=== PATIENT | female | born 1995 | race Caucasian/White ===

== ENCOUNTER 2017-01-25 13:30 | Emergency (ER) | payer BC, OTHER ==
[2017-01-25 14:15] VITALS: BP 145/78
--- NOTE | 2017-01-25 15:17 | ERNOTE ---
Time Seen by Provider: 01/25/17 15:03 Stated Complaint: NOT BREATHING RIGHT Presenting Symptoms:: other - occasional yellow sputum and chest wall pain Immunizations: IMMUNIZATION HX Immunizations Up to Date Yes History of Influenza Vaccine Yes Hx Pneumococcal Vaccination No Allergies/Adverse Reactions: Allergies milk Adverse Reaction (Verified 01/25/17 14:16) Nausea Home Medications: HOME MEDICATIONS Albuterol Sulfate [Proair Hfa] 2 puff IH PRN PRN 02/06/16 [Last Taken Unknown] Ranitidine HCl [Zantac 75] 150 mg PO DAILY PRN 02/06/16 [Last Taken Unknown] Azithromycin [Zithromax] 250 mg PO DAILY #6 tablet 01/25/17 [Last Taken Unknown] Naproxen [Naprosyn] 500 mg PO BID #60 tablet 01/25/17 [Last Taken Unknown] - History of Present Ilness Timing: intermittent, other - ongoing for the past week Severity: mild Associated Symptoms: Reports: chest pain/soreness Review of Systems - Review of Systems Constitutional: Present: See HPI EYE: Present: no symptoms reported ENT: Present: no symptoms reported Respiratory: Present: no symptoms reported Cardiology: Present: no symptoms reported Gastrointestinal/Abdominal: Present: no symptoms reported Genitourinary: Present: no symptoms reported Musculoskeletal: Present: no symptoms reported Skin: Present: no symptoms reported Neurological: Present: no symptoms reported Endocrine: Present: no symptoms reported Hematologic/Lymphatic: Present: no symptoms reported Psych: Present: no symptoms reported - Patient's Past Medical History Patient History - Medical: GERD Patient History - Cardiac/Respiratory: No pertinent hx Patient History - Cancer: No Hx of Cancer Patient History - Surgical Procedures: Ear Tubes Patient History - Other: None LMP (females 10-50): 3 weeks - Social History Living Situations: home Abuse History: No History of abuse Psych History: No pertinent hx Smoking Status: Never smoker Alcohol Use: rarely Drug Use: none - Immunizations Immunizations Up to Date: Yes Hx Pneumococcal Vaccination: No History of Influenza Vaccine: Yes Physical Exam - Physical Exam General Appearance: Present: wd/wn, alert, no apparent distress Eye Exam: Normal inspection: bilateral, PERRL: bilateral Ears, Nose, Throat: Present: normal ENT inspection, H, normal pharynx Neck: Present: normal inspection, nontender Respiratory: Present: no respiratory distress, no accessory muscle use, chest nontender, lungs clear, other - fine coarse breath sounds, chest wall tenderness Cardiovascular/Chest: Present: regular rate, rhythm, no murmur, normal peripheral pulses Gastrointestinal/Abdominal: Present: normal bowel sounds, nontender, nondistended, soft, no organomegaly Rectal Exam: Present: deferred Back Exam: Present: normal inspection, normal range of motion Extremity Exam: Present: normal inspection, non-tender, no edema, normal range of motion Neurological Exam: Present: alert, oriented, normal mood/affect Skin Exam: Present: normal color, warm/dry Lymphatic Exam: Present: no adenopathy ED Progress - Vital Signs Patient's Vital Signs:: I have reviewed the patient's vital signs. Vital Signs: Vital Signs 01/25/17 14:11 Temperature 37.1 C Pulse Rate 120 H Respiratory 16 Rate Blood Pressure 145/78 O2 Sat by Pulse 100 Oximetry - Progress/Reassessment Chief Complaint: Upper Respiratory Symptoms Progress:: Unchanged - Transfer of Care Expected Disposition: Discharge Departure - Departure Clinical Impression: Chest wall tenderness URI (upper respiratory infection) Qualifiers: URI type: unspecified URI Qualified Code(s): J06.9 - Acute upper respiratory infection, unspecified Instructions: Upper Respiratory Infection, Adult, [id number], Chest Wall Pain , [id number] Prescriptions: Azithromycin [Zithromax] 250 mg PO DAILY #6 tablet Naproxen [Naprosyn] 500 mg PO BID #60 tablet
--- OUTSIDE RECORDS SUMMARY | 2017-01-25 15:27 | XMS REPORT | Continuity of Care Document ---
:1995 Author Organization [facility] Address Unavailable [place] [id number] Care Team Providers Name Role Phone Francisco Brown Primary Care Provider [phone] Source Comments This disclosure is being made pursuant to the [employer] program and maynot contain all information available regarding this patient.[facility] Active Allergies and Adverse Reactions No Known Allergies Current Medications Be aware that medications may not be up to date as of this document. Alwaysverify current medications with the patient. Prescription Sig. Disp. Refills Start Date End Date Status citalopram (CELEXA) 20 MG Take 1 tablet by 1 01/13/2016 Active tablet mouth daily. dicyclomine (BENTYL) 10 MG Take 10 mg by 0 03/09/2016 Active capsule mouth 4 (four) times daily. LORazepam (ATIVAN) 0.5 MG Take 1 tablet by 1 01/13/2016 Active tablet mouth as needed. pantoprazole (PROTONIX) 40 Take 40 mg by 0 03/09/2016 Active MG tablet mouth daily. ibuprofen (ADVIL,MOTRIN) 0 03/17/2016 Active 800 MG tablet chlorhexidine (PERIDEX) 0 03/17/2016 Active 0.12 % solution amoxicillin (AMOXIL) 500 0 03/17/2016 Active MG capsule Active Problems No known active problems Most Recent Encounters Date Type Specialty Providers Description 11/04/2016 Data Import Social History Tobacco Use Types Packs/Day Years Used Date Never Smoker Smokeless Tobacco: Never Used Alcohol Use Drinks/Week oz/Week Comments No 0 Standard drinks or equivalent 0.0 Last Filed Vital Signs Vital Sign Reading Time Taken Blood Pressure 124/76 03/16/2016 9:59 AM CDT Pulse 120 03/16/2016 9:59 AM CDT Temperature 36.8 C (98.3 F) 03/16/2016 9:59 AM CDT Respiratory Rate 12 03/16/2016 9:59 AM CDT Height 1.562 m (5' 1.5") 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
--- OUTSIDE RECORDS SUMMARY | 2017-01-25 15:27 | XMS REPORT | Continuity of Care Document ---
:1995 Author Organization [facility] ([facility]) Address [address] [place] [address] Phone [phone] Care Team Providers Name Role Phone Francisco Brown Primary Care Provider [phone] Source Comments This disclosure is being made pursuant to the Care Everywhere program, applicable federal and state laws, and may not contain all informaitonavailable regarding this patient.[facility] ([facility]) Active Allergies and Adverse Reactions No Known Allergies Current Medications Prescription Sig. Disp. Refills Start Date End Date Status CETIRIZINE HCL take by mouth. Active (CETIRIZINE PO) MONTELUKAST SODIUM take by mouth. Active (SINGULAIR PO) buPROPion (WELLBUTRIN Take 1 Tab by mouth 30 Tab 2 09/10/2010 Active XL) 300 mg extended Every morning. - release tablet cancel lithium script Indications: Depression associated with Manic Depressive Disorder escitalopram (LEXAPRO) Take 1 Tab by mouth 30 Tab 0 09/10/2010 Active 10 mg tablet daily. Indications: Major Depressive Disorder Active Problems Problem Noted Date Encounter for long-term (current) use of other medications 02/02/2010 Bipolar II disorder 01/19/2010 Attention-deficit/hyperactivity disorder 01/19/2010 Social History Tobacco Use Types Packs/Day Years Used Date Never Assessed Last Filed Vital Signs Vital Sign Reading Time Taken Blood Pressure 137/71 09/10/2010 2:33 PM CDT Pulse 102 09/10/2010 2:33 PM CDT Temperature - - Respiratory Rate - - Height 1.539 m (5' 0.6") 09/10/2010 2:33 PM CDT Weight 59.3 kg (130 lb 11.7 oz) 09/10/2010 2:33 PM CDT Body Mass Index 25.04 09/10/2010 2:33 PM CDT Oxygen Saturation - - Plan of Care Health Maintenance Due Date Last Done Comments Hepatitis B Vaccine (1 of 3 - Primary Series) 1996 HPV Vaccine (1 of 3 - Female/Unknown 3 Dose Series) 2007 Tdap Vaccine 2007 Meningococcal Vaccine (1 of 1) 2012 Lipid Disorder Screening 2014 MMR Vaccine 2014 Td Vaccine 2014 Varicella Vaccine (1 of 2 - Adult - No Evidence of 2014 Immunity) Influenza Vaccine: Seasonal (#1) 06/21/2016 Results from Last 3 Months Not on file
== END 2017-01-25 15:23 | disposition home or self-care (01) ==
LOC: ER 13:30
DX: R07.89 Other chest pain (principal); J06.9 Acute upper respiratory infection, unspecified

== ENCOUNTER 2019-04-02 16:13 | Inpatient (IN) ==
[2019-04-02] MEDS ORDERED: DEXTROSE 5%-LACTATED RINGERS 1,000 ML IV PRN (16:23)
[2019-04-02] MEDS ORDERED: RINGER'S SOLUTION,LACTATED 1,000 ML IV ONE (16:23)
[2019-04-02] MEDS ORDERED: ONDANSETRON 4 MG TAB.RAPDIS PO PRN (16:23)
[2019-04-02] MEDS ORDERED: OXYTOCIN/DEXTROSE 5%-WATER 30 UNITS/500 ML BAG IV ONE (16:23)
[2019-04-02 16:45] LABS: Random Urine Total Protein 13.7 mg/dL (0-12)
[2019-04-02 16:49] LABS: Hematocrit 33.3 % (37.0-47.0); Hemoglobin 11.7 gm/dL (12.5-16.0); Mean Cell Volume 93.8 fl (78-100); Mean Corpuscular Hgb Conc 35.1 g/dl (32-36); Mean Platelet Volume 9.8 fl (8-12.5); Neutrophil # 5.9 K/mm3 (1.3-6.0); Neutrophil % 77.4 % (42-75.0); Platelet Count 201 K/mm3 (150-450); Red Blood Count 3.55 M/mm3 (4.2-5.4); Red Cell Distribution Width 12.3 % (11.5-14.0); White Blood Count 7.7 K/mm3 (4.0-10.5)
[2019-04-02 16:49] LABS: Cocaine Ur Negative (NEGATIVE); Urine Barbiturate Negative (NEGATIVE); Urine Benzodiazepines Negative (NEGATIVE); Urine Opiates Negative (NEGATIVE); Urine PCP Negative (NEGATIVE); Urine THC Negative (NEGATIVE)
--- NOTE | 2019-04-02 16:56 | HP ---
Chief Complaint - Chief Complaint Date of Service: 04/02/19 Time of Service: 16:43 Chief Complaint: elevated BPs History of Present Illness: 24 yo at 38 6/7 weeks presents to L&D from office with elevated blood pressures (150/76, 151/97). She admits to edema and frequent mild HAs that resolve without medication over the past couple days (has been getting these even before ). Denies epigastric pain or visual changes. This complicated by anemia, asthma, GHTN, and platypelloid pelvis. 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 mt Surgical History: Surgical History (Updated 12/13/18 @ 14:55 by Akash Chavez DO) H/O adenoidectomy Onset Date: 1996 Tympanic tube insertion Onset Date: 1996 Family History: Family History (Updated 06/01/18 @ 07:09 by Soledad Geller) Aunt Diabetes Hypothyroidism Father Hypertension Social History: Preferred Language Mauritanian Smoking Status Never smoker Abuse History No History of abuse Psych History No pertinent hx (Last Reviewed 04/02/19 @ 15:19 by Xiomy Tatum RN) No Social History Section defined Review Of Systems (GEN) - Review of Systems Generalized/Overall Review: Present: No Symptoms Reported EENTM: Present: No Symptoms Reported Respiratory: Present: No Symptoms Reported Cardiac: Present: No Symptoms Reported Abdominal: Present: No Symptoms Reported Genitourinary: Present: No Symptoms Reported Musculoskeletal: Present: No Symptoms Reported Neurological: Present: No Symptoms Reported Skin: Present: No Symptoms Reported Endocrine: Present: No Symptoms Reported Immunizations: IMMUNIZATION HX Immunizations Up to Date Yes History of Influenza Vaccine Yes Hx Pneumococcal Vaccination No Allergies/Adverse Reactions: Allergies Allergy/AdvReac Type Severity Reaction Status Date / Time milk AdvReac Nausea Verified 04/02/19 15:31 dust mite Allergy Mild Sneezing Uncoded 07/12/18 07:09 poison oak/jac Allergy Mild RASH Uncoded 06/01/18 07:09 Home Medications: HOME MEDICATIONS Vits96/Iron Fum/Folic [ S] 1 tab-cap PO DAILY 12/12/18 [Last Taken 12/11/18 17:00] ferrous sulfate 325 mg (65 mg iron) tablet,delayed release 325 mg PO DAILY #30 tab 01/09/19 [Last Taken Unknown] Exam - Exam Vital Signs: 04/02/19 Blood Pressure 150/76 H 04/02/19 Height 1.55 m 04/02/19 Weight 88 kg 04/02/19 Body Mass Index (BMI) 36.6 04/02/19 Blood Pressure 151/97 H 04/02/19 Blood Pressure Position Sitting 04/02/19 Respiratory Rate 16 04/02/19 Pulse Rate 119 H 04/02/19 Temperature 37.4 C 04/02/19 Temperature Source Tympanic 04/02/19 O2 Sat by Pulse Oximetry 99 04/02/19 Oxygen Delivery Method room air 04/02/19 Blood Pressure 150/76 H 04/02/19 Blood Pressure 150/60 H 04/02/19 Blood Pressure Position Sitting 04/02/19 Height 1.55 m 04/02/19 Weight 88 kg 04/02/19 Body Mass Index (BMI) 36.6 04/02/19 Blood Pressure 150/76 H 04/02/19 Blood Pressure Position Sitting Constitutional: Present: Alert, Oriented x3, Cooperative, No distress ENT Exam: Present: hearing grossly normal Breasts: Present: Exam deferred Respiratory: Present: lungs clear, no respiratory distress Cardiovascular/Chest: Present: normal peripheral pulses, regular rate, rhythm Abdomen: Present: soft, nontender, no rebound tenderness, other - gravid /Rectal: Present: External genitalia normal, Other - cervix 2/50/-2 Extremity: Present: no calf tenderness, lower extremity edema Skin Exam: Present: normal color, warm/dry, no cyanosis Lymphatic: Present: no adenopathy Neurologic: Present: alert, normal mood/affect, oriented x 3, other - DTR 3/4 b/l patella Appearance: Present: appropriate appearance, appropriate insight Eye contact: Present: cooperative, good eye contact, normal speech Thoughts: Present: normal thought pattern Assessment/Plan - Assessment/Plan (1) Gestational HTN Assessment: r/o preeclampsia. Admit for induction of labor. Epidural PRN. Seizure precautions to evaluation complete. Problem: Acute Qualifiers: Trimester: third trimester Qualified Code(s): O13.3 - Gestational [-induced] hypertension without significant proteinuria, third trimester (2) Anemia Problem: Acute (3) Asthma Problem: Chronic Qualifiers:
[2019-04-02 17:05] LABS: Albumin * 2.6 gm/dl (3.4-5.0); Anion Gap 16.6 mmol/L (6.8-13.8); BUN/Creatinine Ratio 14.7 (9.0-21.6); Bilirubin, Total 0.2 mg/dL (0.0-1.1); Calcium * 9.2 mg/dL (7.9-10.9); Carbon Dioxide 21.3 mmol/L (24-32.6); Potassium 3.9 mmol/L (3.4-4.6); Total Protein 6.6 gm/dL (6.2-8.2)
[2019-04-02] MEDS ORDERED: ONDANSETRON HCL/PF 2 MG/ML VIAL IV PRN (22:44)
[2019-04-02] MEDS ORDERED: BUPIVACAINE HCL/0.9 % NACL/PF 250 ML EP PRN (22:44)
[2019-04-02] MEDS ORDERED: NALOXONE HCL 1 MG/1 ML SYRG IV PRN (22:44)
[2019-04-02] MEDS ORDERED: LIDOCAINE HCL/EPINEPHRINE 20 ML VIAL IJ ONE (22:45)
[2019-04-02] MEDS ORDERED: BUPIVACAINE HCL/PF 30 ML VIAL EP SCH (22:45)
--- NOTE | 2019-04-02 23:04 | ANES ---
Anesthesia Pre Procedure Eval HOME MEDICATIONS Vits96/Iron Fum/Folic [ S] 1 tab-cap PO DAILY 12/12/18 [Last Taken 12/11/18 17:00] ferrous sulfate 325 mg (65 mg iron) tablet,delayed release 325 mg PO DAILY #30 tab 01/09/19 [Last Taken Unknown] Allergies/Adverse Reactions: Allergies Allergy/AdvReac Type Severity Reaction Status Date / Time milk AdvReac Nausea Verified 04/02/19 15:31 dust mite Allergy Mild Sneezing Uncoded 06/01/18 07:09 poison oak/jac Allergy Mild RASH Uncoded 06/01/18 07:09 - Planned Procedure Planned Procedure: Labor epidural Medication List Reviewed:: Yes Allergies Verified: Yes Medical History (Updated 04/02/19 @ 16:56 by Akash Chavez DO) Anemia (Acute) Onset Date: 01/08/19 w/ Asthma (Chronic) GERD (gastroesophageal reflux disease) Asthma mild- no hospitalizations 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 mt Surgical History (Updated 12/13/18 @ 14:55 by Akash Chavez DO) H/O adenoidectomy Onset Date: 1996 Tympanic tube insertion Onset Date: 1996 Family History (Updated 06/01/18 @ 07:09 by Soledad Geller) Aunt Diabetes Hypothyroidism Father Hypertension - Anesthesia Assessment and Plan ASA Class: PS, II Anesthesia Type Plan: Epidural
--- NOTE | 2019-04-02 23:24 | ANES ---
Anesthesia Procedure Note Procedure Note: ANESTHESIA PROCEDURE NOTE Date of Procedure: 04/02/2019. Time of procedure: 2305. Performed by: Hector Tripathi CRNA Timber Harvester Operator: None. Preprocedure diagnosis: Active labor. Post procedure diagnosis: Same. Procedure: Insertion of labor epidural. Indications: The patient is a 24 -year-old female in active labor requesting labor epidural for pain management. Findings: See below. Details of the procedure: The patient was placed in a sitting position. DuraPrep as well as Betadine swabs X3 was applied to the patient's back. Patient was then draped in a sterile fashion. Lidocaine 1% was infiltrated to the skin and subcutaneous tissues at the level of the L3-4 interspace. The epidural space was identified using a 18-gauge Tuohy needle with [id number] technique. Epidural catheter was inserted to a depth of 11 centimeters at skin. Negative test dose was elicited using 3 mL of 1.5% preservative-free lidocaine plus epinephrine 1 200,000. The epidural catheter was then taped and secured in place. EBL: Minimal. Fluids: N/A. Specimen: N/A. Post procedure condition: The patient tolerated the procedure well. No complications were noted. Thank you for this consultation. Hector Tripathi CRNA
--- NOTE | 2019-04-02 23:24 | ANES ---
Post Anesthesia Assessment - Vital Signs Airway Patency: Normal - Mental Status Level Of Consciousness: Awake - N/V Assessment Nausea/Vomiting Presence: None Dehydration:: No
[2019-04-03] MEDS ORDERED: ACETAMINOPHEN 325 MG TABLET PO ONE (05:12)
[2019-04-03] MEDS ORDERED: ACETAMINOPHEN 325 MG TABLET ONE (05:22)
--- NOTE | 2019-04-03 08:29 | PN ---
Progess Note - Interim Date: 04/03/19 Time: 08:28 Narrative: 04/03/19 08:28 Patient comfortable with epidural Vital signs stable. Pitocin at 9 mu/min. FHT: reassuring Contractions q 2-3 min Cervix: 5/90/-2, AROM-clear Impression: Intrauterine at 39 weeks, [facility] Plan: Continue present plan
[2019-04-03] MEDS ORDERED: GLYCERIN/WITCH HAZEL LEAF 40 APPL BOX TP PRN (14:28)
[2019-04-03] MEDS ORDERED: oxyCODONE HCL/ACETAMINOPHEN 1 TAB TABLET PO PRN ×2 (14:28)
[2019-04-03] MEDS ORDERED: BENZOCAINE/MENTHOL 81 SPRAY CAN TP PRN (14:28)
[2019-04-03] MEDS ORDERED: OXYTOCIN/DEXTROSE 5%-WATER 30 UNITS/500 ML BAG IV ONE (14:28)
[2019-04-03] MEDS ORDERED: BISACODYL 10 MG SUPP.RECT RC PRN (14:28)
[2019-04-03] MEDS ORDERED: HYDROCORTISONE 30 APPL TUBE TP PRN (14:28)
[2019-04-03] MEDS ORDERED: SENNOSIDES 8.6 MG TABLET PO PRN (14:28)
[2019-04-03] MEDS: IBUPROFEN 800 MG TABLET PO PRN ×2 (15:24→22:10)
[2019-04-03] MEDS: DOCUSATE SODIUM 100 MG CAPSULE PO SCH (21:22)
[2019-04-04] MEDS: IBUPROFEN 800 MG TABLET PO PRN ×3 (05:20→18:01)
[2019-04-04] MEDS: DOCUSATE SODIUM 100 MG CAPSULE PO SCH ×2 (13:26→20:00)
--- NOTE | 2019-04-04 13:50 | OR ---
Operative Report - Dictated Report Narrative: Late entry for 04/03/19 Spontaneous vaginal delivery of viable male at 1340 with Apgars 9 and 9, weighing 3070 g in CARLOS position with right hand cord 1. Cord clamping delayed approximately 1 minute Placenta delivered complete, intact, with three vessel cord Estimated blood loss: less than 50 ml Anesthesia: epidural Lacerations: None History for Definition: * The number of deliveries resulting in a live the patient experienced prior to current hospitalization * The previous delivery of live twins or any live multiple gestation is considered one live event. *If primagravida or nulliparous is documented select zero for the number of previous live births. Live Events: 1
--- NOTE | 2019-04-04 13:52 | PN ---
Subjective - Date and Time Seen Date: 04/04/19 Time: 13:51 Objective - Vitals Vitals: Last Vital Signs Temp 36.4 C 04/04/19 12:02 Pulse 98 04/04/19 12:02 Resp 16 04/04/19 12:02 BP 128/73 04/04/19 12:02 Pulse Ox 97 04/04/19 12:02 Patient denies complaints. Lochia wnl Abdomen - soft, nontender Uterus - firm, at umbilicus - 1 No calf tenderness Impression: day #1 - s/p spontaneous vaginal delivery. Plan: Continue routine care Cauti Physician Documentation - Urinary Catheter Management Urethral (Prabhakar) Date of Insertion: 04/03/19 Time of Insertion: 01:17 Date of Removal: 04/03/19 Time of Removal: 13:04 Assessment/Plan - Problems/Diagnosis (1) Gestational HTN Problem: Acute Qualifiers: Trimester: third trimester Qualified Code(s): O13.3 - Gestational [-induced] hypertension without significant proteinuria, third trimester (2) Anemia Problem: Acute (3) Asthma Problem: Chronic Qualifiers:
[2019-04-05] MEDS ORDERED: diphenhydrAMINE HCL 25 MG CAPSULE PO PRN (03:28)
[2019-04-05 07:13] VITALS: BP 121/66
[2019-04-05] MEDS ORDERED: FERROUS SULFATE 325 MG TABLET PO SCH (09:00)
[2019-04-05] MEDS ORDERED: PRENATAL VITS96/IRON FUM/FOLIC 1 TAB TABLET PO SCH (09:00)
[2019-04-05] MEDS: DOCUSATE SODIUM 100 MG CAPSULE PO SCH (10:54)
--- NOTE | 2019-04-05 12:04 | PN ---
Subjective - Date and Time Seen Date: 04/05/19 Time: 12:04 Objective - Vitals Vitals: Last Vital Signs Temp 36.4 C 04/05/19 07:08 Pulse 81 04/05/19 07:08 Resp 18 04/05/19 07:08 BP 121/66 04/05/19 07:08 Pulse Ox 98 04/05/19 07:08 Patient denies complaints. Lochia wnl Abdomen - soft, nontender Uterus - firm, at umbilicus - 2 No calf tenderness Impression: day #2 - s/p spontaneous vaginal delivery. Plan: Routine discharge instructions Cauti Physician Documentation - Urinary Catheter Management Urethral (Prabhakar) Date of Insertion: 04/03/19 Time of Insertion: 01:17 Date of Removal: 04/03/19 Time of Removal: 13:04 Assessment/Plan - Problems/Diagnosis (1) Gestational HTN Problem: Acute Qualifiers: Trimester: third trimester Qualified Code(s): O13.3 - Gestational [-induced] hypertension without significant proteinuria, third trimester (2) Anemia Problem: Acute (3) Asthma Problem: Chronic Qualifiers:
== END 2019-04-05 11:30 | disposition home or self-care (01) | DRG 807 ==
LOC: OB 16:13
PROVIDERS: ADMIT Obstetrics & Gynecology; ATTEND Obstetrics & Gynecology
CPT/HCPCS: 36415; 59025; 80053; 80307; 82570; 84155; 84156; 85025; J2405